=== PATIENT | male | born 1930 | race African-American/Black ===

== ENCOUNTER 2019-08-11 12:13 | Emergency (ER) | payer OTHER ==
[~2019-08-11] VITALS: Ht 185.4 cm; Wt 83.9 kg
[2019-08-11 14:33] VITALS: BP 110/59
== END 2019-08-11 14:33 | disposition home or self-care (01) ==
LOC: ED 12:13
DX: S62.613D Displaced fracture of proximal phalanx of left middle finger, subsequent encounter for fracture with routine healing (principal); S62.303D Unspecified fracture of third metacarpal bone, left hand, subsequent encounter for fracture with routine healing; J45.909 Unspecified asthma, uncomplicated; I10 Essential (primary) hypertension; Y24.8XXD Other firearm discharge, undetermined intent, subsequent encounter
CPT/HCPCS: Q0092